=== PATIENT | male | born 1990 | race Caucasian/White ===

== ENCOUNTER 2024-09-21 16:32 | Emergency (ER) | payer MEDICAID, OTHER ==
[~2024-09-21] VITALS: Ht 172.7 cm; Wt 104.3 kg
[2024-09-21 16:36] VITALS: O2SAT 97
[2024-09-21 16:41] VITALS: BP 143/101; PULSE 91; RESP 16; TEMP 98.3; O2SAT 98
[2024-09-21] MEDS ORDERED: OFLO5DRO4 EACH EAR (17:09)
[2024-09-21] MEDS: IBUPROFEN 400MG TABLET PO ONE (17:15)
== END 2024-09-21 18:13 | disposition home or self-care (01) ==
LOC: ER 16:32
DX: H61.93 Disorder of external ear, unspecified, bilateral (principal)
CPT/HCPCS: 99283